=== PATIENT | female | born 1955 | race Two or more races ===

== ENCOUNTER 2023-01-06 06:47 | Emergency (ER) | payer MEDICARE ==
[~2023-01-06] VITALS: Ht 162.6 cm; Wt 57.7 kg
[~2023-01-06 06:47] MED LIST: APIX5TAB3 PO; CEFD300C3 PO; DILT300C40 PO; FURO-150 PO; LOSA1TAB36 PO; PANT40TA54 PO; ROSU10TA28 PO; SYN0.075T PO
--- NOTE | 2023-01-06 08:05 | NUR ---
PT REQ MORE TESTING BE DONE BEFORE DISCHARGE. RN WILL NOTIFY DR ESTRADA. RN NOTIFIED SIMULATION ENGINEER DONNA.
--- NOTE | 2023-01-06 08:16 | NUR ---
PER DR ESTRADA HE WILL PLACE ORD TO EVALUATE PT FURTHER.
[2023-01-06 08:56] LABS: ALANINE AMINOTRANSFERASE 15 U/L (12-78); ALBUMIN 3.2 G/DL (3.4-5.0); ALBUMIN/GLOBULIN RATIO 0.7 (1.1-1.5); ALKALINE PHOSPHATASE 115 IU/L (46-116); ANION GAP 7 (8-16); ASPARTATE AMINO TRANSFERASE 22 U/L (10-37); BASOPHILS # (AUTO) 0.1 X10'3 (0-0.2); BASOPHILS % (AUTO) 0.3 % (0-1); BILIRUBIN,TOTAL 0.5 MG/DL (0.1-1.0); BLOOD UREA NITROGEN 15 MG/DL (7-18); CALCIUM 8.8 MG/DL (8.5-10.1); CHLORIDE 101 MMOL/L (99-107); CREATININE 0.88 MG/DL (0.40-0.90); EOSINOPHILS % (AUTO) 0 % (0-6); GLUCOSE 95 MG/DL (70-104); HEMATOCRIT 39.4 % (35.0-45.0); HEMOGLOBIN 13.3 g/dl (12.0-16.0); LYMPHOCYTES # (AUTO) 0.4 X10'3 (1.1-4.8); LYMPHOCYTES % (AUTO) 2.6 % (21-51); MEAN CORPUSCULAR HEMOGLOBIN 30.6 PG (27.0-31.0); MEAN CORPUSCULAR HGB CONC 33.7 g/dL (33.0-36.5); MEAN PLATELET VOLUME 7.8 FL (7.4-10.4); MONOCYTES # (AUTO) 0.7 X10'3 (0-0.9); MONOCYTES % (AUTO) 3.9 % (2-12); NEUTROPHILS # (AUTO) 16.3 X10'3 (1.8-7.7); NEUTROPHILS % (AUTO) 93.2 % (42-75); PLATELET COUNT 308 X10'3 (140-440); RED BLOOD COUNT 4.33 X10'6 (4.20-5.60); RED CELL DISTRIBUTION WIDTH 13.4 % (11.5-14.5); SODIUM 136 MMOL/L (135-145); TOTAL CARBON DIOXIDE 27.7 MMOL/L (24-32); TOTAL PROTEIN 7.9 G/DL (6.4-8.2); WHITE BLOOD COUNT 17.5 X10'3 (4.5-11.0); eGFR 64 ML/MIN
[2023-01-06 08:57] LABS: POTASSIUM 4.1 MMOL/L (3.5-5.1)
[2023-01-06 09:04] LABS: MAGNESIUM 1.9 MG/DL (1.5-2.4)
[2023-01-06 10:18] VITALS: BP 117/63
[2023-01-06] MEDS ORDERED: ALBU18HF2 INH (16:07)
[2023-01-06] MEDS ORDERED: BUDE10.2 INH (16:07)
[2023-01-06] MEDS ORDERED: LOSA50TA64 PO (17:45)
== END 2023-01-06 10:25 | disposition home or self-care (01) ==
LOC: ER 06:47
DX: R53.83 Other fatigue (principal); I11.9 Hypertensive heart disease without heart failure; E03.9 Hypothyroidism, unspecified; Z79.899 Other long term (current) drug therapy; Z79.1 Long term (current) use of non-steroidal anti-inflammatories (NSAID)
CPT/HCPCS: 36415; 80053; 83735; 83880; 84484; 85025; 99284